=== PATIENT | male | born 1960 | race Caucasian/White ===

== ENCOUNTER → 2018-10-07 | Outpatient (CLI) | payer OTHER ==
--- NOTE | 2018-10-07 22:41 | MR ---
EXAMINATION TYPE: MR knee LT wo con DATE OF EXAM: 10/07/2018 COMPARISON: Outside left knee x-ray September 18, 2018 HISTORY: left knee pain per order.. Pain and swelling and locking per patient. TECHNIQUE: Multiplanar, multisequence images of the knee is performed without IV contrast. FINDINGS: MEDIAL MENISCUS: Anterior horn is intact. Posterior horn shows triangular shaped increased signal ext ending to inferior articular surface. LATERAL MENISCUS: Anterior and posterior horn both show subtle oblique signal sagittal image 7. CRUCIATE LIGAMENTS: The anterior and posterior cruciate ligaments are intact and unremarkable. COLLATERAL LIGAMENTS: The medial collateral ligament and lateral collateral ligament complex are inta ct . Moderate surrounding fluid signal is noted around the medial collateral ligament. EXTENSOR MECHANISM: Visualized quadriceps and patellar tendons are intact. EFFUSION: No significant suprapatellar joint effusion. POPLITEAL CYST: There is moderate size multiseptated popliteal/de anda cyst. TRICOMPARTMENT SPACES: Mild to moderate tricompartment joint space loss is seen. There is mild spurri ng patellofemoral compartment CARTILAGE: The some thinning of articular cartilage along the lateral posterior patellar facet is lexus ntified. No full-thickness cartilaginous loss is seen. BONE MARROW SIGNAL: No focal abnormal marrow signal is appreciated. OTHER: No additional significant abnormality is appreciated. IMPRESSION: 1. Full-thickness tear posterior horn of medial meniscus. 2. Possible intrasubstance tear involving the anterior and posterior horns of lateral meniscus. 3. Mild to borderline moderate tricompartment degenerative changes most prominent patellofemoral comp artment with chondromalacia patella present. 4. Mild MCL sprain injury. 5. Moderate size multi septated popliteal cyst.
== END | disposition home or self-care (01) ==
LOC: RADMRIMAIN 21:45
PROVIDERS: ATTEND Orthopaedic Surgery
DX: S83.242A Other tear of medial meniscus, current injury, left knee, initial encounter (principal); M17.12 Unilateral primary osteoarthritis, left knee; M22.42 Chondromalacia patellae, left knee; S83.412A Sprain of medial collateral ligament of left knee, initial encounter; M71.22 Synovial cyst of popliteal space [Baker], left knee

== ENCOUNTER → 2018-11-04 | Outpatient (CLI) | payer OTHER ==
[2018-11-04 09:53] LABS: Basophils # (A) 0.1 k/uL (0-0.2); Basophils % (A) 1 %; Eosinophils # (A) 0.4 k/uL (0-0.7); Eosinophils % (A) 3 %; HCT 46.6 % (39.0-53.0); HGB 14.7 gm/dL (13.0-17.5); Lymphocytes # (A) 2.2 k/uL (1.0-4.8); Lymphocytes % (A) 18 %; MCH 27.8 pg (25.0-35.0); MCHC 31.6 g/dL (31.0-37.0); MCV 88.1 fL (80.0-100.0); Mean Platelet Volume 7.6; Monocytes # (A) 0.9 k/uL (0-1.0); Monocytes % (A) 7 %; Neutrophils # (A) 8.3 k/uL (1.3-7.7); Neutrophils % (A) 68 %; Platelet Count 289 k/uL (150-450); RBC 5.29 m/uL (4.30-5.90); RDW 13.9 % (11.5-15.5); WBC 12.2 k/uL (3.8-10.6)
[2018-11-04 10:10] LABS: Potassium 4.7 mmol/L (3.5-5.1)
== END | disposition home or self-care (01) ==
LOC: LABPAT 09:20
PROVIDERS: ATTEND Orthopaedic Surgery
DX: Z01.818 Encounter for other preprocedural examination (principal); M23.92 Unspecified internal derangement of left knee; Z01.812 Encounter for preprocedural laboratory examination
CPT/HCPCS: 36415; 80051; 85025; 93005

== ENCOUNTER 2018-11-14 10:27 | Day surgery (SDC) | payer OTHER ==
[2018-11-12 08:33] VITALS: BMI 23.5
--- NOTE | 2018-11-13 16:04 | HP ---
HISTORY AND PHYSICAL REASON FOR ADMISSION: Surgery scheduled for 11/14/2018 Nahum Gill is a 58-year-old patient seen with progressive left knee pain. We discussed treatment options. He elected to proceed with left knee arthroscopy. Consent regarding the procedure was obtained. PAST MEDICAL HISTORY: Noncontributory. PAST SURGICAL HISTORY: Right foot surgery, left knee arthroscopy. DAILY MEDICATIONS: None reported. ALLERGIES: IBUPROFEN. SOCIAL HISTORY: Patient currently smokes 1 pack cigarettes daily. PHYSICAL EXAMINATION: Evaluation of the left knee is range of motion is 0 to 130 degrees. There is a mild effusion present. Tenderness medial joint line. Positive medial Paz's. Ligaments are stable. Hip rotation is without pain. Distal neurovascular exam is intact. RADIOGRAPHS: Left knee radiographs revealed mild osteoarthritic changes. Left knee MRI revealed a medial meniscal tear as well as osteoarthritic changes. IMPRESSION: Internal derangement, left knee with medial meniscal tear. PLAN: Left knee arthroscopy with partial meniscectomy and debridement. Surgery scheduled for 11/14/2018. MMODL / IJN: [id number] /
[~2018-11-14 10:27] MED LIST: DEXAMETHASONE SOD PHOSPHATE 10 MG/ML 1 ML VIAL IV ONE; HYDROmorphone 0.5 MG/0.5 ML SYRINGE IVP PRN; LACTATED RINGERS 1,000 ML IV SCH; LIDOCAINE 1% 20 ML VIAL (10MG/ML) FOR IV START INTRADERMA PRN; ONDANSETRON 4 MG/2 ML VIAL IVP ONE; ceFAZolin IN SWFI 2 GM/20 ML SYRINGE IVP ONE
[2018-11-14 10:53] LABS: Glucose,Whole Blood 89 mg/dL (75-99)
[2018-11-14] MEDS ORDERED: SUCCINYLCHOLINE CHLORIDE 100 MG/5 ML SYR IV ONE (11:11)
[2018-11-14] MEDS ORDERED: HYDROmorphone (PF) 1 MG/ML ONE (11:11)
[2018-11-14] MEDS ORDERED: fentaNYL (PF) 50 MCG/ML 2 ML AMP ONE (11:11)
[2018-11-14] MEDS ORDERED: BUPIVACAIN-EPI 0.25%-1:200,000 30 ML VIAL INTRAARTIC ONE (11:11)
[2018-11-14] MEDS ORDERED: LIDOCAINE 1% INJ 10MG/ML (20 ML MDV) ONE (11:11)
[2018-11-14] MEDS ORDERED: MIDAZOLAM 2 MG/2 ML VIAL ONE (11:11)
[2018-11-14] MEDS ORDERED: PROPOFOL 10 MG/ML 20 ML VIAL IV ONE (11:11)
--- NOTE | 2018-11-14 12:01 | P.OP ---
Date of Procedure: 11/14/18 Preoperative Diagnosis: Internal derangement left knee Postoperative Diagnosis: 1. Medial meniscal tear left knee 2. Medial plica left knee 3. Reactive synovitis medial and suprapatellar compartments left knee Procedure(s) Performed: 1. Arthroscopic partial medial meniscectomy left knee 2. Arthroscopic resection medial plica left knee 3. Arthroscopic partial synovectomy medial and suprapatellar compartments left knee Anesthesia: GETA, local Surgeon: Nahum Teresa Estimated Blood Loss (ml): 5 Pathology: none sent Condition: stable Disposition: PACU Indications for Procedure: 58-year-old patient seen with progressive left knee pain. After we discussed treatment options she elected to proceed with arthroscopy. Operative Findings: see description of procedure Description of Procedure: Patient was taken to the operative suite. Patient underwent a general anesthetic by the department of anesthesia. Patient was given preoperative antibiotics. The left lower extremity was placed in a well-padded arthroscopic leg pearl. The left leg was prepped and draped in the normal sterile orthopedic fashion. A lateral parapatellar and suprapatellar incision was made. Trochars were inserted. Arthroscopy was initiated. Suprapatellar pouch revealed diffuse thick reactive synovitis. The patellofemoral joint appeared to articulate congruently. There was no chondromalacia present. The scope was guided into the medial gutter. There was a medial plica which did impinge along the medial femoral condyle with range of motion. No loose bodies were identified. The scope was then guided into the medial compartment. A medial parapatellar incision was made. Trocar inserted followed by probe. There was a complex tear involving the posterior horn and midbody medial meniscus. There was thick reactive synovitis anteriorly. There was no significant chondromalacia present. I performed a partial medial meniscectomy down to stable tissue. I performed a partial synovectomy decompressing the reactive synovitis. The residual meniscus was stable. There was good decompression of the synovitis. Scope and probe were then guided into the intercondylar notch. Cruciates were identified, probed and found to be stable. The scope and probe were then guided into lateral compartment. Lateral meniscus was probed and found to be stable. There was no chondromalacia. There were no loose bodies. There was no significant synovitis. The scope was in guided back into the suprapatellar compartment. I introduced a motorized shaver into the suprapatellar compartment. I then guided this into the medial gutter. I now resected that medial plica. I now performed a partial synovectomy in the suprapatellar compartment decompressing the reactive synovitis there. The shaver was removed. I took the knee through range of motion noted complete resection medial plica. There was good decompression of the synovitis within the super patellar compartment. I took one more look on the entire knee, no residual debris. Instruments were now removed from the joint. The joint was infiltrated with .25% Marcaine. Steri-Strips were applied to the portal sites. Sterile dressings were applied. The patient was placed into a PEREZ hose. No tourniquet was utilized. The patient was awakened, transferred to a bed and taken to recovery stable satisfactory condition.
[2018-11-14 12:12] VITALS: TEMP 98.1
[2018-11-14] MEDS ORDERED: KETOROLAC 30 MG/ML 1 ML VIAL IVP ONE (12:26)
[2018-11-14] MEDS ORDERED: LACTATED RINGERS 1,000 ML IV ONE (12:37)
[2018-11-14 12:49] VITALS: PULSE 68; RESP 16
[2018-11-14 12:57] VITALS: BP 117/72
== END 2018-11-14 13:19 | disposition home or self-care (01) ==
LOC: OR 10:27
PROVIDERS: ATTEND Orthopaedic Surgery
DX: S83.242A Other tear of medial meniscus, current injury, left knee, initial encounter (principal); X58.XXXA Exposure to other specified factors, initial encounter; M67.52 Plica syndrome, left knee; M65.862 Other synovitis and tenosynovitis, left lower leg; Z79.1 Long term (current) use of non-steroidal anti-inflammatories (NSAID); F17.210 Nicotine dependence, cigarettes, uncomplicated
CPT/HCPCS: 29881; J2250; J1100; J2405; J2001; J3010; J1885; J1170; J0330; J2704; J0690

== ENCOUNTER → 2019-10-22 | Outpatient (CLI) | payer BC ==
--- NOTE | 2019-10-22 22:38 | MR ---
EXAMINATION TYPE: MR knee RT wo con DATE OF EXAM: 10/22/2019 COMPARISON: Outside right knee x-ray October 08, 2019. HISTORY: Rt knee pain, injured while bending October 01, 2019 TECHNIQUE: Multiplanar, multisequence images of the knee is performed without IV contrast. FINDINGS: MEDIAL MENISCUS: Anterior horn is intact without tear. Truncated appearance posterior horn with abnor mal rectangular shaped signal inferiorly extending to articular surface sagittal image 7. LATERAL MENISCUS: Anterior and posterior horns are intact without tear. CRUCIATE LIGAMENTS: The anterior and posterior cruciate ligaments are intact and unremarkable. COLLATERAL LIGAMENTS: The medial collateral ligament and lateral collateral ligament complex are inta ct and unremarkable. EXTENSOR MECHANISM: Visualized quadriceps and patellar tendons are intact. EFFUSION: No significant suprapatellar joint effusion. POPLITEAL CYST: No popliteal/de anda cyst. TRICOMPARTMENT SPACES: Mild to moderate narrowing medial tibiofemoral and patellofemoral compartments . No significant spurring. CARTILAGE: Thinning of articular cartilage medial tibiofemoral compartment. BONE MARROW SIGNAL:. Heterogeneous diminished T1 and increased T2 signal involving the anterior media l aspect of the tibial plateau axial image 7 measuring roughly 2.2 x 1.8 cm. There is subtle area of irregular linear low T1 signal coronal image 14 and sagittal image 11 measuring roughly 8 to 9 mm in length. OTHER: No additional significant abnormality is appreciated. IMPRESSION: 1. Full-thickness tear posterior horn medial meniscus. 2. Incomplete nondisplaced fracture with surrounding edema anterior aspect medial tibial plateau. 3. Mild to moderate degenerative changes most prominent medial tibiofemoral compartment.
== END | disposition home or self-care (01) ==
LOC: RADMRIMAIN 18:15
PROVIDERS: ATTEND Orthopaedic Surgery
DX: S83.231A Complex tear of medial meniscus, current injury, right knee, initial encounter (principal); S82.201A Unspecified fracture of shaft of right tibia, initial encounter for closed fracture; M17.11 Unilateral primary osteoarthritis, right knee

== ENCOUNTER → 2019-11-22 | Outpatient (CLI) | payer BC ==
[2019-11-22 09:43] LABS: Basophils # (A) 0.1 k/uL (0-0.2); Basophils % (A) 1 %; Eosinophils # (A) 0.3 k/uL (0-0.7); Eosinophils % (A) 2 %; HCT 46.7 % (39.0-53.0); HGB 14.9 gm/dL (13.0-17.5); Lymphocytes # (A) 1.7 k/uL (1.0-4.8); Lymphocytes % (A) 14 %; MCH 28.5 pg (25.0-35.0); MCHC 31.8 g/dL (31.0-37.0); MCV 89.6 fL (80.0-100.0); Mean Platelet Volume 8.8; Monocytes # (A) 0.6 k/uL (0-1.0); Monocytes % (A) 5 %; Neutrophils # (A) 9.1 k/uL (1.3-7.7); Neutrophils % (A) 76 %; Platelet Count 256 k/uL (150-450); RBC 5.21 m/uL (4.30-5.90); RDW 13.7 % (11.5-15.5); WBC 11.9 k/uL (3.8-10.6)
[2019-11-22 09:53] LABS: Potassium 4.5 mmol/L (3.5-5.1)
== END | disposition home or self-care (01) ==
LOC: LABPAT 08:48
PROVIDERS: ATTEND Orthopaedic Surgery
DX: Z01.810 Encounter for preprocedural cardiovascular examination (principal); Z01.812 Encounter for preprocedural laboratory examination; M23.91 Unspecified internal derangement of right knee
CPT/HCPCS: 36415; 80051; 85025; 93005

== ENCOUNTER 2019-12-04 11:39 | Day surgery (SDC) | payer BC ==
[2019-11-26 10:04] VITALS: BMI 20.3
--- NOTE | 2019-12-03 14:04 | HP ---
HISTORY AND PHYSICAL DATE OF SURGERY: 12/04/2019 Nahum Gill is a 59-year-old patient seen with progressive right knee pain. We discussed options for treatment. He elected to proceed with arthroscopy. Consent was obtained. PAST MEDICAL HISTORY: Noncontributory. PAST SURGICAL HISTORY: Left knee arthroscopy, right foot surgery. DAILY MEDICATIONS: None. ALLERGIES: Are IBUPROFEN. SOCIAL HISTORY: Smokes 1 pack of cigarettes daily. PHYSICAL EVALUATION RIGHT KNEE: Range of motion is 0-130. Mild effusion. Tenderness medial joint line. Positive medial Paz's. Ligaments stable. Hip rotation without pain. His distal neurovascular exam is intact. RIGHT KNEE RADIOGRAPHS: Revealed mild osteoarthritic changes. A right knee MRI revealed medial meniscal tear and osteoarthritic changes. IMPRESSION: 1. Internal derangement, right knee with medial meniscal tear. 2. Tobacco use. PLAN: Right knee arthroscopy with partial meniscectomy, partial synovectomy and debridement. MMODL / IJN: [id number] /
[~2019-12-04 11:39] MED LIST changes: -DEXAMETHASONE SOD PHOSPHATE 10 MG/ML 1 ML VIAL IV ONE; -ceFAZolin IN SWFI 2 GM/20 ML SYRINGE IVP ONE
[2019-12-04 12:12] VITALS: TEMP 97.4
[2019-12-04] MEDS ORDERED: BUPIVACAINE (PF) 0.25% 30 ML VIAL INTRAARTIC ONE ×2 (13:17→13:47)
[2019-12-04] MEDS ORDERED: fentaNYL (PF) 50 MCG/ML 2 ML AMP ONE (13:19)
[2019-12-04] MEDS ORDERED: MIDAZOLAM 2 MG/2 ML VIAL ONE (13:19)
[2019-12-04] MEDS ORDERED: PROPOFOL 10 MG/ML 20 ML VIAL IV ONE (13:19)
[2019-12-04] MEDS ORDERED: LIDOCAINE 1% INJ 10MG/ML (20 ML MDV) ONE (13:19)
--- NOTE | 2019-12-04 14:06 | P.OP ---
Date of Procedure: 12/04/19 Preoperative Diagnosis: Internal derangement right knee Postoperative Diagnosis: 1. Tear medial meniscus right knee 2. Grade 4 chondromalacia femoral sulcus right knee 3. Reactive synovitis medial, lateral and suprapatellar compartments right knee Procedure(s) Performed: 1. Arthroscopic partial medial meniscectomy right knee 2. Arthroscopic chondroplasty femoral sulcus right knee 3. Arthroscopic microfracture femoral sulcus right knee 4. Arthroscopic partial synovectomy medial, lateral and suprapatellar compartments right knee Anesthesia: KARENA, local Surgeon: Nahum Teresa Estimated Blood Loss (ml): 5 Pathology: none sent Condition: stable Disposition: PACU Indications for Procedure: 59-year-old patient seen with progressive right knee pain. After having options regarding treatment discussed, he elected to proceed with arthroscopy. Operative Findings: See description of procedure Description of Procedure: Patient was taken to the operative suite. Patient underwent a general anesthetic by the department of anesthesia. Patient was given preoperative antibiotics. The right lower extremity was placed in a well-padded arthroscopic leg pearl. The right leg was prepped and draped in the normal sterile orthopedic fashion. A lateral parapatellar and suprapatellar incision was made. Trochars were inserted. Arthroscopy was initiated. Suprapatellar pouch revealed diffuse thick reactive synovitis. The patellofemoral joint appeared to articulate congruently. There with grade 1/2 chondromalacia of the patella with no osteochondral tears present. There were grade 3/4 chondromalacia changes of the central portion of the femoral sulcus with some osteochondral flap tears present. The scope was guided into the medial gutter. No loose bodies or plica were identified. The scope was then guided into the medial compartment. A medial parapatellar incision was made. Trocar inserted followed by probe. There was a complex tear involving the posterior medial meniscus. There were grade 1/2 chondromalacia changes the medial femoral condyle. There was thick reactive synovitis anteriorly. I performed a partial medial meniscectomy. I performed a partial synovectomy decompressing the reactive synovitis. The residual meniscus was stable. There was good decompression of synovitis. Scope and probe were then guided into the intercondylar notch. Cruciates were identified, probed and found to be stable. The scope and probe were then guided into lateral compartment. There was some mild superficial fraying midbody lateral meniscus. There were grade 1 chondromalacia changes of the lateral compartment. There was some thick reactive synovitis anteriorly. The scope was in guided back into the suprapatellar compartment. I introduced a motorized shaver into the super patellar compartment. I debrided some piecemeal from its of meniscus I encountered. I performed a chondroplasty of the femoral sulcus. I performed a partial synovectomy decompressing the reactive synovitis. There was good decompression of synovitis. There was an area of exposed bone the central area that femoral sulcus. I performed a microfracture to that area. I utilized a microfracture awl penetrating the bone with resulting bleeding and a microfracture site. The residual osteochondral surface was stable. Instruments were now removed from the joint. The joint was infiltrated with .25% Marcaine. Steri-Strips were applied to the portal sites. Sterile dressings were applied. The patient was placed into a PEREZ hose. No tourniquet was utilized. The patient was awakened, transferred to a bed and taken to recovery stable satisfactory condition.
[2019-12-04 15:19] VITALS: BP 133/80; PULSE 56; RESP 16
== END 2019-12-04 15:36 | disposition home or self-care (01) ==
LOC: OR 11:39
PROVIDERS: ATTEND Orthopaedic Surgery
DX: M23.321 Other meniscus derangements, posterior horn of medial meniscus, right knee (principal); M22.41 Chondromalacia patellae, right knee; M94.261 Chondromalacia, right knee; M65.861 Other synovitis and tenosynovitis, right lower leg; F17.210 Nicotine dependence, cigarettes, uncomplicated; J44.9 Chronic obstructive pulmonary disease, unspecified; K08.109 Complete loss of teeth, unspecified cause, unspecified class; Z88.6 Allergy status to analgesic agent; Z98.890 Other specified postprocedural states
CPT/HCPCS: 29881; 29879; J2250; J0690; J2405; J2001; J3010; J2704; J1170